=== PATIENT | female | born 1980 | race Caucasian/White ===

== ENCOUNTER → 2016-05-19 | Outpatient (CLI) | payer OTHER | LOC: M SMT 15:47 | PROVIDERS: ATTEND Obstetrics & Gynecology | DX: Z31.438 Encounter for other genetic testing of female for procreative management (principal) ==

== ENCOUNTER → 2016-07-20 | Outpatient (CLI) | payer OTHER ==
--- NOTE | 2016-07-20 11:31 | REP ---
Obstetric ultrasound for anatomy: There is a single intrauterine gestation in a breech presentation. There is movement and cardiac activity, the heart rate is 144 beats per minute. The placenta is anterior, without previa or abruptio with grade zero maturity. Subjectively amniotic fluid volume is normal. The cervix is 3.1 cm length. The heart rate is 144 beats per minute. The cervix is 3.1 cm length. Based on today's ultrasound the gestational age is 21 weeks 6 days with an ADI of 11/24/2016. Gestational age by LMP is 20 weeks 3 days. weight is 458 grams (1 pound 0 ounces). This is the 48th percentile for 21 weeks 6 days and greater than 97th percentile for 20 weeks 3 days. The following anatomic structures are identified and are unremarkable: Cranium, choroid plexus, cavum, cerebellum/posterior fossa, cisterna magna, face, facial profile, upper lip, lungs, four-chamber heart, cardiac right and left ventricular outflow tracts, diaphragm, stomach, cord insertion, three-vessel cord, kidneys, bladder, spine and upper lower extremities. No anomalies are identified. Signed by Diony Beard MD 07/20/2016 11:22 A
== END ==
LOC: M RAD 09:50
PROVIDERS: ATTEND Specialist
DX: O32.1XX0 Maternal care for breech presentation, not applicable or unspecified (principal); Z3A.21 21 weeks gestation of pregnancy

== ENCOUNTER → 2016-08-29 | Outpatient (CLI) | payer OTHER ==
[2016-08-29 19:26] LABS: MEAN CORPUSCULAR HEMOGLOBIN 30.8 pg (27.0-33.0); MEAN CORPUSCULAR HGB CONC 32.1 g/dl (32.0-36.5); MEAN CORPUSCULAR VOLUME 95.9 fl (80.0-96.0); RED CELL DISTRIBUTION WIDTH 12.6 % (11.5-14.5)
== END ==
LOC: M WUC 10:14
PROVIDERS: ATTEND Advanced Practice Midwife
DX: Z34.02 Encounter for supervision of normal first pregnancy, second trimester (principal)

== ENCOUNTER 2016-09-23 09:55 | Outpatient (CLI) | payer OTHER ==
[2016-09-23] VITALS (11 sets, daily range): BP systolic 105–138; BP diastolic 55–81
[~2016-09-23] VITALS: Ht 167.6 cm; Wt 76.0 kg
[2016-09-23] MEDS ORDERED: PRENTAB9 PO (10:00)
[2016-09-23] MEDS ORDERED: MAGNESIUM SULFATE 4% INJ 20GM/500ML (40MG/ML) (J3475) As Ordered ONE (10:36)
[2016-09-23] MEDS ORDERED: BETAMETHASONE SOLUSPAN 6MG/ML INJ 5ML (J0702) IM SCH (11:00)
[2016-09-23] MEDS ORDERED: MAG Sulf (L&D) 4 GM/100 ML 4 GM in APPROPRIATE DILUENT 1 EA IV ONE (11:00)
[2016-09-23] MEDS ORDERED: PENICILLIN G POTASSIUM IV 5 MU in D5W MINI-BAG PLUS 100 ML IV ONE (11:00)
[2016-09-23] MEDS ORDERED: TERBUTALINE SULFATE 1 MG/ML VIAL (J3105) As Ordered ONE (11:10)
[2016-09-23 11:12] LABS: BASO % 0.3 % (0.0-1.0); EOS # 0.2 K/mm3 (0.0-0.50); EOS % 1.1 % (0.0-3.0); LARGE UNSTAINED CELL # 0.2 K/mm3 (0.0-0.4); LARGE UNSTAINED CELL % 1.3 % (0.0-4.0); LYMPH # 2.2 K/mm3 (1.5-4.5); LYMPH % 15.3 % (24.0-44.0); MEAN CORPUSCULAR HEMOGLOBIN 30.7 pg (27.0-33.0); MEAN CORPUSCULAR HGB CONC 34.1 g/dl (32.0-36.5); MEAN CORPUSCULAR VOLUME 89.9 fl (80.0-96.0); MONO # 0.4 K/mm3 (0.0-0.8); MONO % 2.9 % (0.0-5.0); NEUTROPHILS # 10.5 K/mm3 (1.8-7.7); NEUTROPHILS % 79.1 % (36.0-66.0); PLATELET COUNT, AUTOMATED 230 k/mm3 (150-450); RED CELL DISTRIBUTION WIDTH 12.4 % (11.5-14.5); WHITE BLOOD COUNT 13.3 K/mm3 (4.0-10.0)
[2016-09-23] MEDS ORDERED: TERBUTALINE SULFATE 1 MG/ML VIAL (J3105) SC ONE (11:15)
[2016-09-23] MEDS ORDERED: MAG Sulf (OBGYN) 20GM/500ML 20,000 MG in APPROPRIATE DILUENT 1 EA IV SCH (11:30)
--- NOTE | 2016-09-23 11:33 | IPN ---
DATE OF SERVICE: 09/23/2016 Tatyana is a 36-year-old, 1, para 0, at 29-5/7 weeks' gestation with an estimated date of confinement (EDC) of 12/04/2016 based on first-trimester ultrasound. She presents to labor and delivery today with report of onset of uncomfortable contractions that started approximately 0400, and they are about every 5-10 minutes. She denies vaginal bleeding and leakage of fluid. The fetus has been active. She denies any recent intercourse. care initiated at [facility] in the first trimester. course has been uncomplicated other than an abnormal Pap. OBSTETRICS (OB) HISTORY: Primigravida. OB laboratories: O+, antibody screen negative. Pap ascus with positive human papillomavirus (HPV). Rubella immune, [facility] ([facility]) negative. Urine culture negative. Hepatitis B surface antigen negative. HIV negative. Hepatitis C antibody negative. Gonorrhea and chlamydia negative. She did undergo [place] screening, which returned XY fetus with low probability for aneuploidy. Her gestational diabetic screening was normal at 106, and her group B streptococcus (GBS) is unknown at this time. PAST MEDICAL HISTORY: Abnormal Pap. Positive HPV. Childhood varicella. SURGERIES: None. FAMILY HISTORY: Diabetes, hypertension, epilepsy. SOCIAL HISTORY: She is . Nonsmoker. Denies alcohol and drug use. Employed as a physical therapist. Positive history of HPV high risk. Denies history of abuse: physical, sexual, and emotional. ALLERGIES: No known drug allergies. CURRENT MEDICATIONS: - vitamin OBJECTIVE: Temperature 98.7, pulse 77, respirations 18, blood pressure is 136/76. She is alert and oriented times three. She does tense with her contractions. heart rate is 150 with moderate variability, positive accelerations, positive variable decelerations observed. She is gucci approximately every 3 minutes. They do palpate moderate. GBS was obtained. Sterile spec examination: The cervix is visually open with a bulging bag of water. There is no bleeding observed. fibronectin was obtained. Sterile vaginal examination: 3 cm dilated, 100% effaced with a bulging bag of water. No bloody show. I did a bedside sonogram. That confirmed cephalic presentation at this time. Her urine dip was all negative. The specific gravity was 1.000. ASSESSMENT: Intrauterine at 29-5/7 weeks. heart rate appropriate for gestation. labor. Group B streptococcus unknown. PLAN: Per consult with Dr. Elvin Franks. Laboratories, including complete blood count (CBC), type and screen, rapid plasma reagin (RPR), GBS, fibronectin. Intravenous (IV) fluids, lactated Ringer (LR) at 125 mL an hour. Start magnesium sulfate for neuro protection. Betamethasone ordered for lung maturity, terbutaline 0.25 mg subcutaneous times one. [place] to gravity. Start IV antibiotics for unknown GBS. Will consider transfer to a higher level of care at the center [facility] if the patient is stable for transfer. Dr. Franks aware and agrees with the plan.
[2016-09-23] MEDS ORDERED: PHENAZOPYRIDINE 100 MG TAB PO ONE (14:00)
[2016-09-23] MEDS ORDERED: INDOMETHACIN 25 MG CAP PO ONE (15:00)
[2016-09-23] MEDS ORDERED: PENICILLIN G POTASSIUM IV 2.5 MU in D5W 100 ML IV SCH (15:00)
[2016-09-23] MEDS: LR 1,000 ML IV SCH ×2 (15:10→15:41)
== END 2016-09-23 15:55 | disposition other institution (70) ==
LOC: M LDO 09:55
PROVIDERS: ATTEND Advanced Practice Midwife
DX: O60.03 Preterm labor without delivery, third trimester (principal); O99.820 Streptococcus B carrier state complicating pregnancy; Z3A.29 29 weeks gestation of pregnancy
CPT/HCPCS: 36415; 59025; 76815; 82731; 85025; 86780; 86850; 86900; 86901; 87081; 96372; 96374; 96375; 96376; J0702; J3105; J3475

== ENCOUNTER → 2017-10-29 | Outpatient (REF) | payer OTHER ==
[2017-11-05 13:33] LABS: HPV HYBRID CAPTURE II Negative (Negative)
== END ==
LOC: M SFHCWAGY 11:30
DX: Z12.4 Encounter for screening for malignant neoplasm of cervix (principal)

== ENCOUNTER → 2018-01-11 | Outpatient (CLI) | payer OTHER | LOC: M WUC 15:53 | DX: M25.562 Pain in left knee (principal); M79.671 Pain in right foot | CPT/HCPCS: 73560 ==

== ENCOUNTER → 2018-02-26 | Outpatient (CLI) | payer OTHER ==
[2018-02-26 09:28] LABS: BASO # 0.1 10^3/uL (0.0-0.2); BASO % 0.8 % (0.0-1.0); EOS # 0.1 10^3/uL (0.0-0.50); EOS % 1.2 % (0.0-3.0); HEMOGLOBIN 12.8 g/dl (12.0-15.5); IMMATURE GRANULOCYTE % 0.3 % (0-3.0); LYMPH # 1.6 10^3/uL (1.5-4.5); LYMPH % 26.9 % (24.0-44.0); MEAN CORPUSCULAR HEMOGLOBIN 29.4 pg (27.0-33.0); MEAN CORPUSCULAR HGB CONC 32.8 g/dl (32.0-36.5); MEAN CORPUSCULAR VOLUME 89.7 fl (80.0-96.0); MONO # 0.4 10^3/uL (0.0-0.8); MONO % 6.1 % (0.0-5.0); NEUTROPHILS # 3.9 10^3/uL (1.8-7.7); NEUTROPHILS % 64.7 % (36.0-66.0); PLATELET COUNT, AUTOMATED 228 10^3/uL (150-450); RED BLOOD COUNT 4.35 10^6/uL (4.00-5.40)
[2018-02-26 10:56] LABS: CHLAMYDIA DNA AMPLIFICATION NEGATIVE (NEGATIVE); GC DNA AMPLIFICATION NEGATIVE (NEGATIVE)
[2018-02-28 11:14] LABS: HEPATITIS C VIRUS ABY INDEX 0.1 INDEX (<0.8)
[2018-02-28 11:14] LABS: HBsAg Prenatal NEGATIVE (NEGATIVE); HIV 1&2 SCREEN CENTAUR NEGATIVE (NEGATIVE); RUBELLA IgG QUALITATIVE IMMUNE (IMMUNE)
== END ==
LOC: M LAB 08:42
DX: Z34.81 Encounter for supervision of other normal pregnancy, first trimester (principal); Z3A.08 8 weeks gestation of pregnancy
CPT/HCPCS: 86762

== ENCOUNTER → 2018-03-18 | Outpatient (CLI) | payer OTHER | LOC: M LAB 07:36 | DX: Z34.80 Encounter for supervision of other normal pregnancy, unspecified trimester (principal) | CPT/HCPCS: 36415 ==

== ENCOUNTER → 2018-05-05 | Outpatient (CLI) | payer OTHER ==
[~2018-05-05] MED LIST: PRENTAB9 PO
--- NOTE | 2018-05-06 03:06 | REP ---
Clinical: Anatomical evaluation. Comparison: None . Findings: Examination demonstrates a single live intrauterine in breech presentation. motion is identified by technologist. Placenta is noted posterior and grade grade zero without evidence for placenta previa or abruption. Amniotic fluid volume is normal. Cervix measures no 4.3 cm in length and appears closed. No evidence for nuchal cord. Gestational age by LMP 18 weeks 5 days with ADI 10/01/2018 . Gestational age by current measurements 19 weeks 3 days with ADI 09/26/2018 . FHR equals 144 beats per minute. BPD 4.0 cm 18 weeks 1 day HC 16.2 cm 19 weeks 0 days AC 14.8 cm 20 weeks 0 days FL 3.0 cm 19 weeks 3 days HL 3.1 cm 20 weeks 3 days HC/AC ratio 1.10 Estimated weight 302 grams ( 82nd percentile). Anatomical assessment demonstrates normal structures including cranium, choroid plexus, cavum, cerebellum/posterior fossa, facial features, lungs, diaphragm, stomach, cord insertion/three-vessel cord, kidneys/bladder, spine, and extremities. Impression: Single live intrauterine in breech presentation demonstrating appropriate interval growth. Limited evaluation of the heart/ventricular outflow tracts noted. Remainder of the anatomical assessment is complete and normal. Electronically Signed by Dm De La Paz MD 05/06/2018 02:58 A
== END ==
LOC: M RAD 15:15 → M LAB 15:15
PROVIDERS: ATTEND Obstetrics & Gynecology
DX: Z36.9 Encounter for antenatal screening, unspecified (principal); Z3A.19 19 weeks gestation of pregnancy

== ENCOUNTER → 2018-05-16 | Outpatient (REF) | payer OTHER | LOC: M LAB REF 18:16 | PROVIDERS: ATTEND Physician Assistant | DX: Z3A.20 20 weeks gestation of pregnancy (principal) ==

== ENCOUNTER → 2018-05-20 | Outpatient (CLI) | payer OTHER ==
--- NOTE | 2018-05-20 16:20 | REP ---
OB ULTRASOUND: Real-time sonographic evaluation of the gravid uterus performed. There is a single living intrauterine gestation. Estimated gestational age is 20 weeks 6 days, EDC 10/01/2018. Today's measurements indicate appropriate growth. BPD 49 mm = 20 weeks 6 days, 50th percentile HC 193 mm = 21 weeks 4 days, 69th percentile AC 157 mm = 20 weeks 6 days, 50th percentile FL 38 mm = 22 weeks 0 days, 79th percentile HC/AC ratio 1.23, within normal range. Estimated weight 421 grams 64th percentile. Cervix is closed and measures 4 cm in length. heart rate 153 beats per minute. SEEN/GROSSLY UNREMARKABLE Lateral ventricles yes Posterior fossa yes Upper lip yes Four-chamber heart no LVOT yes RVOT yes Stomach yes Cord insertion yes Three vessel cord yes Kidneys yes Bladder yes Spine yes position: Breech. Placenta: Posterior and grade 1 with no previa or abruption. Amniotic fluid: Within normal limits. Electronically Signed by Diony Fraser MD 05/20/2018 04:26 P
== END ==
LOC: M RAD 14:59
PROVIDERS: ATTEND Specialist
DX: Z36.89 Encounter for other specified antenatal screening (principal); O32.1XX2 Maternal care for breech presentation, fetus 2; Z3A.20 20 weeks gestation of pregnancy

== ENCOUNTER → 2018-06-15 | Outpatient (CLI) | payer OTHER ==
--- NOTE | 2018-06-16 08:12 | REP ---
Clinical: Anatomical evaluation. Comparison: 05/20/2018 . Findings: Examination demonstrates a single live intrauterine in transverse (head to maternal right) presentation. motion is identified by technologist. Placenta is noted posterior and grade grade 1 without evidence for placenta previa or abruption. Amniotic fluid volume is normal. Cervix measures 4.4 cm in length and appears closed. No evidence for nuchal cord. Gestational age by LMP 24 weeks 4 days with ADI 10/01/2018 . Gestational age by current measurements 24 weeks 5 days with ADI 09/30/2018 . FHR equals 153 beats per minute. Estimated weight 767 grams ( 57th percentile). Anatomical assessment demonstrates normal structures including cranium, choroid plexus, cavum, cerebellum/posterior fossa, facial features, lungs, four-chamber heart/ventricular outflow tracts, diaphragm, stomach, cord insertion/three-vessel cord, kidneys/bladder, spine, and extremities. Impression: Single live intrauterine in transverse lie demonstrating appropriate interval growth. Anatomical assessment is complete and normal. No gross abnormalities are identified. Electronically Signed by Dm De La Paz MD 06/15/2018 04:08 P
== END ==
LOC: M RAD 14:59
PROVIDERS: ATTEND Specialist
DX: O09.212 Supervision of pregnancy with history of pre-term labor, second trimester (principal)

== ENCOUNTER → 2018-07-02 | Outpatient (CLI) | payer OTHER ==
[2018-07-02 13:43] LABS: BASO % 0.5 % (0.0-1.0); EOS # 0.3 10^3/uL (0.0-0.50); HEMATOCRIT 37.1 % (36.0-47.0); HEMOGLOBIN 11.9 g/dl (12.0-15.5); LYMPH # 1.4 10^3/uL (1.5-4.5); LYMPH % 16.3 % (24.0-44.0); MEAN CORPUSCULAR HEMOGLOBIN 30.1 pg (27.0-33.0); MEAN CORPUSCULAR HGB CONC 32.1 g/dl (32.0-36.5); MEAN CORPUSCULAR VOLUME 93.7 fl (80.0-96.0); MONO # 0.4 10^3/uL (0.0-0.8); MONO % 5.2 % (0.0-5.0); NEUTROPHILS # 6.2 10^3/uL (1.8-7.7); NEUTROPHILS % 74.4 % (36.0-66.0); PLATELET COUNT, AUTOMATED 230 10^3/uL (150-450); RED BLOOD COUNT 3.96 10^6/uL (4.00-5.40); WHITE BLOOD COUNT 8.4 10^3/uL (4.0-10.0)
== END ==
LOC: M WUC 09:11
PROVIDERS: ATTEND Specialist
DX: O09.212 Supervision of pregnancy with history of pre-term labor, second trimester (principal); Z3A.00 Weeks of gestation of pregnancy not specified

== ENCOUNTER → 2018-07-08 | Outpatient (REF) | payer OTHER | LOC: M LAB REF 16:51 | PROVIDERS: ATTEND Advanced Practice Midwife | DX: Z87.51 Personal history of pre-term labor (principal) ==

== ENCOUNTER 2018-09-12 07:59 | Inpatient (IN) | payer OTHER ==
[2018-09-12] VITALS (15 sets, daily range): BP systolic 103–139; BP diastolic 56–82
[~2018-09-12] VITALS: Ht 167.6 cm; Wt 83.5 kg
[2018-09-12] MEDS ORDERED: TUMS500C PO (09:16)
[2018-09-12] MEDS ORDERED: MAKE250I IM (09:58)
[2018-09-12 10:22] LABS: HEMATOCRIT 38.8 % (36.0-47.0); HEMOGLOBIN 12.7 g/dl (12.0-15.5); MEAN CORPUSCULAR HEMOGLOBIN 28.9 pg (27.0-33.0); MEAN CORPUSCULAR HGB CONC 32.7 g/dl (32.0-36.5); MEAN CORPUSCULAR VOLUME 88.4 fl (80.0-96.0); PLATELET COUNT, AUTOMATED 227 10^3/uL (150-450); RED BLOOD COUNT 4.39 10^6/uL (4.00-5.40); WHITE BLOOD COUNT 11.2 10^3/uL (4.0-10.0)
--- NOTE | 2018-09-12 11:15 | HPE ---
DATE OF ADMISSION: 09/12/2018 HISTORY OF PRESENT ILLNESS: Patient is a 38-year-old female who is a 2, para 0-1-0-1 at 37.2 weeks gestation with an ADI of 10/01/2018 based off of her last menstrual cycle and consistent with her first trimester ultrasound. The patient initiated care in her first trimester with [facility]. Her has been complicated by history of delivery at 30 weeks and AMA. Patient has been receiving [place] injections weekly due to her history of delivery. Patient presented to labor and delivery with complaints of contractions and bloody show. She reports active movement. She denies leaking of fluid. ALLERGIES: No known drug allergies. CURRENT MEDICATIONS: - [place] injections weekly - vitamins - Fioricet as needed for migraines PAST MEDICAL HISTORY: History of abnormal pap smear. PAST SURGICAL HISTORY: None. FAMILY HISTORY: Noncontributory. SOCIAL HISTORY: Patient is . She denies ever being a smoker. She denies alcohol abuse or use during . She also denies illicit drug use or abuse at all during or prior to . PAST HISTORY: September 2016 at 30 weeks 5 days gestation, patient had a delivery of a live male weighing 4 pounds via spontaneous vaginal delivery. LABS: Patient's blood type is O+, with an antibody screen that is negative. Her hemoglobin, hematocrit and platelets on 02/26/2018 were 12.8, 39 and 228. Her rubella status is immune. Her VDRL is nonreactive. Her urine culture has no growth. Hepatitis B surface antigen is negative. HIV is negative. Hepatitis C is nonreactive. Gonorrhea and chlamydia are both negative. MIP testing via panorama is low risk, the female gender. Her one-hour Glucola test done on 07/02/2018 was 87 with a hemoglobin and hematocrit of 11.9 and 27.1 with platelets of 230 and her GBS was negative. heart rate is 140 beats per minute. Moderate variability, positive accelerations, no decelerations. Contractions every 3 to 4 minutes and palpate mild. VITAL SIGNS: Blood pressure is 126/82, heart rate is 84. Respiratory rate is 16, temperature is 98.7. PHYSICAL EXAMINATION: GENERAL: Alert and oriented times three. RESPIRATORY: Regular rate with no use of accessory muscles. ABDOMEN: Gravid. Nontender to touch. LOWER EXTREMITIES: Generalized edema with no pitting edema. No clonus. ASSESSMENT: Intrauterine at 37 weeks 2 days gestation, active labor, GBS negative, AMA. PLAN: Admit patient to labor and delivery. Out of bed ad maximino. Diet is clear liquids. Saline lock to be started with labs per unit protocol. Anticipate cervical change and anticipate vaginal delivery. Patient does not desire an epidural at this time, but will consult anesthesia if patient desires one. MTDD
--- NOTE | 2018-09-12 16:24 | IPNPDOC ---
Obstetrical Progress Note Date of Service September 12, 2018 Subjective Patient reports her contractions have picked up in pain and intensity from when she first arrived but haven't gotten any worse in the last few hours. Objective Vital Signs Date Time Temp Pulse Resp B/P (MAP) Pulse Ox O2 Delivery O2 Flow Rate FiO2 09/12/18 14:57 98.0 80 16 123/78 (93) Assessment Heart Rate (FHR): 150 Variability: Moderate Accelerations: Positive Decelerations: None Heart Rate Tracing: Category I Tocometer Contractions: Yes Frequency: regular, other (every 4 minutes) Sterile Vaginal Examination Dilation: 4 cm Effacement (%): 90% Station: -2 Cervical Consistency: Soft Cervical Position: Anterior (moderate amount of bloody show with exam) Postion/Presentation: Cephalic presentation Assessment and Plan EGA at Admission: 37.2 Status: Reassuring Group B Streptococcus: Negative Anticipate: Vaginal Delivery Additional Comments Will reassess in 2-3 hours for cervical change. LUCERO CUNNINGHAM CNM September 12, 2018 16:24
[2018-09-12] MEDS ORDERED: ACETAMINOPHEN 500 MG TAB PO PRN (16:30)
[2018-09-12] MEDS ORDERED: OXYTOCIN 30 UNITS IN 0.9% NaCl 500ML IV BAG (J2590) As Ordered ONE (17:46)
[2018-09-12] MEDS ORDERED: OXYTOCIN DRIP 30 UNITS in APPROPRIATE DILUENT 1 EA IV SCH (18:52)
[2018-09-12] MEDS ORDERED: IBUPROFEN 600 MG TAB PO PRN (19:00)
[2018-09-12] MEDS ORDERED: ACETAMINOPHEN TAB 650MG DOSE (2X325MG) PO PRN (19:00)
[2018-09-12] MEDS ORDERED: MEASLES,MUMPS,RUBELLA VACCINE INJ (MMR-II) (90707) SC SCH (19:00)
[2018-09-12] MEDS ORDERED: RHOGAM 300 MCG (1500 IU) INJ (J2790) IM SCH (19:00)
[2018-09-12] MEDS ORDERED: METHYLERGONOVINE MALEATE 0.2 MG TAB PO PRN (19:00)
[2018-09-12] MEDS ORDERED: DIBUCAINE 1% OINTMENT 30GM TOP PRN (19:00)
[2018-09-12] MEDS ORDERED: DOCUSATE SODIUM 100 MG CAP PO PRN (19:00)
[2018-09-12] MEDS: IBUPROFEN 800 MG TAB PO PRN (19:40)
--- NOTE | 2018-09-12 20:25 | DN ---
DATE OF DELIVERY: 09/12/2018 TIME: 1813 hours STATUS: Spontaneous vaginal delivery. Delivered. ANESTHESIA: Epidural. PROVIDER: Marlen Ingram CNM, EFRAIN FINDINGS: Female weighing 6 pounds 15 ounces, 3150 grams, scores 8/9, advanced maternal age (AMA), marginal cord insertion. Patient is a 38-year-old female who is now a 2, para 1-1-0-2 at 37 weeks and 2 days gestation who presented to labor and delivery in active labor. She spontaneously ruptured at 1636 to a moderate amount of clear fluid. She progressed to fully dilated at 1743 hours and pushed to a live female in the right occiput anterior (NEO) position with restitution to right occiput transverse (ROT). The anterior shoulder delivered with ease and the corpus immediately followed. The baby was placed [id number] with mother and active and crying with stimulation. The cord was clamped times two after 2 minutes and cut by the father of the baby. A three-vessel cord was noted. The placenta delivered spontaneously and intact at 1821 hours with a noted marginal cord insertion. Uterine hemostasis was achieved via rapid infusion of IV Pitocin and fundal massage. Estimated blood loss (EBL) was 250. The perineum, vagina, cervix was inspected and found to have a small first-degree laceration that required no repair due to good hemostasis. The mom plans to breastfeed. They are naming her Linda. Both mom and baby are in stable condition. All counts of instruments and sponges are correct. MTDD
[2018-09-13] MEDS: ACETAMINOPHEN 500 MG TAB PO PRN ×2 (03:08→11:34)
[2018-09-13 05:21] VITALS: BP 122/61
[2018-09-13] MEDS: IBUPROFEN 800 MG TAB PO PRN ×3 (06:06→23:13)
[2018-09-13] MEDS: PRENATAL VITAMINS CHEWABLE TABLET PO SCH (08:12)
[2018-09-13 18:00] VITALS: BP 122/64
[2018-09-14 06:00] VITALS: BP 113/75
[2018-09-14] MEDS: IBUPROFEN 800 MG TAB PO PRN (06:39)
[2018-09-14] MEDS: PRENATAL VITAMINS CHEWABLE TABLET PO SCH (09:11)
[2018-09-14] MEDS ORDERED: MAPA500T2 PO (11:54)
[2018-09-14] MEDS ORDERED: IBUP-1114 PO (11:54)
== END 2018-09-14 12:45 | disposition home or self-care (01) | DRG 807 ==
LOC: M LDO 07:59 → M LDI 08:54 → M OBS 20:24
PROVIDERS: ADMIT Advanced Practice Midwife; ATTEND Advanced Practice Midwife
PROC: 10E0XZZ Delivery of Products of Conception, External Approach (ICD-10-PCS; principal; 2018-09-12)
PROC: 0HQ9XZZ Repair Perineum Skin, External Approach (ICD-10-PCS; 2018-09-12)
DX: O70.0 First degree perineal laceration during delivery (principal); Z37.0 Single live birth; Z3A.37 37 weeks gestation of pregnancy; Z87.51 Personal history of pre-term labor; Z79.899 Other long term (current) drug therapy; O09.523 Supervision of elderly multigravida, third trimester

== ENCOUNTER → 2018-11-14 | Outpatient (CLI) | payer OTHER ==
[~2018-11-14] MED LIST changes: +IBUP-1114 PO; +MAKE250I IM; +MAPA500T2 PO; +TUMS500C PO
[2018-11-14 13:07] LABS: HEMATOCRIT 42.1 % (36.0-47.0); HEMOGLOBIN 13.5 g/dl (12.0-15.5); MEAN CORPUSCULAR HGB CONC 32.1 g/dl (32.0-36.5); MEAN CORPUSCULAR VOLUME 90.3 fl (80.0-96.0); PLATELET COUNT, AUTOMATED 246 10^3/uL (150-450); RED BLOOD COUNT 4.66 10^6/uL (4.00-5.40); WHITE BLOOD COUNT 5.3 10^3/uL (4.0-10.0)
[2018-11-14 13:26] LABS: ALBUMIN 4.5 GM/DL (3.2-5.2); ALT/SGPT 87 U/L (12-78); BILIRUBIN,TOTAL 0.3 MG/DL (0.2-1.0); BLOOD UREA NITROGEN 16 MG/DL (7-18); CALCIUM LEVEL 9.4 MG/DL (8.5-10.1); CARBON DIOXIDE LEVEL 27 MEQ/L (21-32); CHLORIDE LEVEL 107 MEQ/L (98-107); CHOLESTEROL LEVEL 217 MG/DL (<200); CREATININE FOR GFR 0.82 MG/DL (0.55-1.30); FREE T4 1.02 NG/DL (0.76-1.46); GLOMERULAR FILTRATION RATE > 60.0 (>60); GLUCOSE, FASTING 77 MG/DL (70-100); HDL CHOLESTEROL 70 MG/DL (>40); LDL CHOLESTEROL 131 MG/DL (<100); NON-HDL-C 147 MG/DL; POTASSIUM SERUM 4.3 MEQ/L (3.5-5.1); SODIUM LEVEL 141 MEQ/L (136-145); THYROID STIMULATING HORMONE 0.771 uIU/ML (0.358-3.740); TOTAL PROTEIN 7.8 GM/DL (6.4-8.2); TRIGLYCERIDES LEVEL 78 MG/DL (<150)
[2018-11-14 13:28] LABS: TOTAL 25(OH) VITAMIN D 36.6 NG/ML (30.0-100.0)
== END ==
LOC: M LAB 11:36
PROVIDERS: ATTEND Physician Assistant
DX: Z13.29 Encounter for screening for other suspected endocrine disorder (principal)

== ENCOUNTER → 2019-05-19 | Outpatient (CLI) | payer OTHER ==
[2019-05-19 10:05] LABS: BASO % 0.8 % (0.0-1.0); EOS # 0.1 10^3/uL (0.0-0.5); EOS % 1.6 % (0.0-3.0); HEMATOCRIT 40.6 % (36.0-47.0); HEMOGLOBIN 12.8 g/dl (12.0-15.5); LYMPH # 1.5 10^3/uL (1.5-5.0); LYMPH % 40.4 % (24.0-44.0); MEAN CORPUSCULAR HGB CONC 31.5 g/dl (32.0-36.5); MEAN CORPUSCULAR VOLUME 91.9 fl (80.0-96.0); MONO # 0.3 10^3/uL (0.0-0.8); MONO % 7.9 % (0.0-5.0); NEUTROPHILS # 1.9 10^3/uL (1.5-8.5); NEUTROPHILS % 49.3 % (36.0-66.0); PLATELET COUNT, AUTOMATED 208 10^3/uL (150-450); RED BLOOD COUNT 4.42 10^6/uL (4.00-5.40); WHITE BLOOD COUNT 3.8 10^3/uL (4.0-10.0)
[2019-05-19 11:06] LABS: ALBUMIN 4.5 GM/DL (3.2-5.2); ALT/SGPT 21 U/L (12-78); BILIRUBIN,TOTAL 0.6 MG/DL (0.2-1.0); BLOOD UREA NITROGEN 19 MG/DL (7-18); CALCIUM LEVEL 9.1 MG/DL (8.5-10.1); CARBON DIOXIDE LEVEL 31 MEQ/L (21-32); CHLORIDE LEVEL 103 MEQ/L (98-107); CHOLESTEROL LEVEL 233 MG/DL (<200); CREATININE FOR GFR 0.72 MG/DL (0.55-1.30); GLOMERULAR FILTRATION RATE > 60.0 (>60); GLUCOSE, FASTING 80 MG/DL (70-100); HDL CHOLESTEROL 64 MG/DL (>40); LDL CHOLESTEROL 156 MG/DL (<100); NON-HDL-C 169 MG/DL; POTASSIUM SERUM 4.2 MEQ/L (3.5-5.1); SODIUM LEVEL 139 MEQ/L (136-145); TOTAL PROTEIN 7.7 GM/DL (6.4-8.2); TRIGLYCERIDES LEVEL 65 MG/DL (<150)
== END ==
LOC: M WUC 08:04
PROVIDERS: ATTEND Physician Assistant
DX: E78.00 Pure hypercholesterolemia, unspecified (principal); E55.9 Vitamin D deficiency, unspecified

== ENCOUNTER → 2020-08-01 | Outpatient (REF) | payer OTHER | LOC: M SFHCWAGY 12:11 | PROVIDERS: ATTEND Nurse Practitioner Women's Health | DX: Z12.4 Encounter for screening for malignant neoplasm of cervix (principal) ==

== ENCOUNTER → 2020-09-06 | Outpatient (CLI) | payer OTHER ==
[2020-09-06 10:10] LABS: BASO % 0.9 % (0.0-1.0); EOS # 0.1 10^3/uL (0.0-0.5); EOS % 1.3 % (0.0-3.0); HEMATOCRIT 40.1 % (36.0-47.0); LYMPH # 1.7 10^3/uL (1.5-5.0); LYMPH % 37.1 % (24.0-44.0); MEAN CORPUSCULAR HGB CONC 32.4 g/dl (32.0-36.5); MEAN CORPUSCULAR VOLUME 92.4 fl (80.0-96.0); MONO # 0.4 10^3/uL (0.0-0.8); MONO % 8.2 % (2.0-8.0); NEUTROPHILS # 2.4 10^3/uL (1.5-8.5); NEUTROPHILS % 52.3 % (36.0-66.0); PLATELET COUNT, AUTOMATED 239 10^3/uL (150-450); RED BLOOD COUNT 4.34 10^6/uL (4.00-5.40); WHITE BLOOD COUNT 4.6 10^3/uL (4.0-10.0)
[2020-09-06 10:17] LABS: ALBUMIN 4.3 GM/DL (3.2-5.2); ALT/SGPT 17 U/L (12-78); BILIRUBIN,TOTAL 0.5 MG/DL (0.2-1.0); BLOOD UREA NITROGEN 13 MG/DL (7-18); CALCIUM LEVEL 9.2 MG/DL (8.5-10.1); CARBON DIOXIDE LEVEL 28 MEQ/L (21-32); CHLORIDE LEVEL 107 MEQ/L (98-107); CHOLESTEROL LEVEL 190 MG/DL (<200); CHOLESTEROL RISK RATIO 3.015 (<5); CREATININE FOR GFR 0.66 MG/DL (0.55-1.30); FREE T4 0.88 NG/DL (0.76-1.46); GLOMERULAR FILTRATION RATE > 60.0 (>60); GLUCOSE, FASTING 90 MG/DL (70-100); HDL CHOLESTEROL 63 MG/DL (>40); LDL CHOLESTEROL 107 MG/DL (<100); NON-HDL-C 127 MG/DL; POTASSIUM SERUM 4.3 MEQ/L (3.5-5.1); SODIUM LEVEL 140 MEQ/L (136-145); TOTAL PROTEIN 7.1 GM/DL (6.4-8.2); TRIGLYCERIDES LEVEL 98 MG/DL (<150)
[2020-09-06 10:30] LABS: TOTAL 25(OH) VITAMIN D 59.4 NG/ML (30.0-100.0)
== END ==
LOC: M WUC 08:01
PROVIDERS: ATTEND Family Medicine
DX: E55.9 Vitamin D deficiency, unspecified (principal); E78.00 Pure hypercholesterolemia, unspecified; Z13.29 Encounter for screening for other suspected endocrine disorder; Z13.0 Encounter for screening for diseases of the blood and blood-forming organs and certain disorders involving the immune mechanism